=== PATIENT | female | born 1990 | race Two or more races ===

== ENCOUNTER 2019-07-03 06:10 | Emergency (ER) | payer MEDICAID ==
[~2019-07-03] VITALS: Ht 172.7 cm; Wt 84.0 kg
[2019-07-03 07:12] LABS: CLARITY,URINE CLEAR (Clear); COLOR,URINE YELLOW (Yellow); GLUCOSE, URINE NEGATIVE (Neg); KETONES,URINE NEGATIVE (Neg); LEUKOCYTE ESTERASE ,URINE NEGATIVE (Neg); NITRITES, URINE NEGATIVE (Neg); OCCULT BLOOD,URINE NEGATIVE (Neg); PH,URINE 7.5 (4.8-8.0); PROTEIN,URINE NEGATIVE (Neg); UROBILINOGEN,URINE 0.2 E.U/dL (0.2-1.0)
[2019-07-03 07:17] LABS: UA COLLECTION TYPE CLN CATCH MIDSTREAM; URINE HCG NEGATIVE (NEG)
[2019-07-03 07:38] LABS: EOSINOPHILS # (AUTO) 0.2 X10'3 (0-0.9); EOSINOPHILS % (AUTO) 4.1 % (0-6); HEMATOCRIT 33.8 % (35.0-45.0); HEMOGLOBIN 11.3 g/dl (12.0-16.0); LYMPHOCYTES # (AUTO) 1.8 X10'3 (1.1-4.8); LYMPHOCYTES % (AUTO) 36.2 % (21-51); MEAN CORPUSCULAR HEMOGLOBIN 28.9 PG (27.0-31.0); MEAN CORPUSCULAR HGB CONC 33.4 g/dL (33.0-36.5); MEAN CORPUSCULAR VOLUME 86.4 FL (78-98); MEAN PLATELET VOLUME 7.1 FL (7.4-10.4); MONOCYTES # (AUTO) 0.4 X10'3 (0-0.9); MONOCYTES % (AUTO) 8.8 % (2-12); NEUTROPHILS # (AUTO) 2.4 X10'3 (1.8-7.7); NEUTROPHILS % (AUTO) 49.9 % (42-75); PLATELET COUNT 238 X10'3 (140-440); RED BLOOD COUNT 3.92 X10'6 (4.20-5.60); RED CELL DISTRIBUTION WIDTH 14.6 % (11.5-14.5); WHITE BLOOD COUNT 4.8 X10'3 (4.5-11.0)
[2019-07-03 08:53] LABS: URINE AMPHETAMINE SCREEN NEGATIVE (Neg); URINE BARBITUATE SCREEN NEGATIVE (Neg); URINE BENZODIAZEPINES SCREEN NEGATIVE (Neg); URINE CANNABINOID SCREEN NEGATIVE (Neg); URINE COCAINE SCREEN NEGATIVE (Neg); URINE METHADONE SCREEN NEGATIVE (Neg); URINE OPIATE SCREEN NEGATIVE (Neg); URINE PHENCYCLIDINE SCREEN NEGATIVE (Neg)
[2019-07-03 09:05] LABS: ALANINE AMINOTRANSFERASE 24 U/L (12-78); ALBUMIN 3.5 G/DL (3.4-5.0); ALKALINE PHOSPHATASE 51 IU/L (46-116); ANION GAP 4 (8-16); ASPARTATE AMINO TRANSFERASE 21 U/L (10-37); BILIRUBIN,TOTAL 0.4 MG/DL (0.1-1.0); BLOOD UREA NITROGEN 13 MG/DL (7-18); BUN/CREATININE RATIO 14.8 (6.6-38.0); CALCIUM 8.2 MG/DL (8.5-10.1); CHLORIDE 104 MMOL/L (99-107); CREATININE 0.88 MG/DL (0.40-0.90); GLUCOSE 89 MG/DL (70-104); POTASSIUM 4.2 MMOL/L (3.5-5.1); SODIUM 138 MMOL/L (135-145); TOTAL CARBON DIOXIDE 29.7 MMOL/L (24-32); TOTAL PROTEIN 7.1 G/DL (6.4-8.2); eGFR 77 ML/MIN
[2019-07-03 09:14] LABS: ETHANOL < 0.010 GM/DL (0.0-0.010)
[2019-07-03 09:19] LABS: ACETAMINOPHEN < 2.0 UG/ML (10-30)
--- NOTE | 2019-07-03 09:29 | NUR ---
PACKET FAXED TO [facility]
[2019-07-03] MEDS ORDERED: BUPR300T53 PO (10:53)
[2019-07-03] MEDS ORDERED: TRAZ-251 PO (10:53)
[2019-07-03] MEDS ORDERED: MONT10TA21 PO (10:53)
[2019-07-03] MEDS ORDERED: FLUT16SP2 BOTHNARES (10:53)
[2019-07-03] MEDS ORDERED: CITA20TA19 PO (10:53)
--- NOTE | 2019-07-03 11:00 | NUR ---
Pt cooperative with assessment. Pt continues to endorse s.i. but says she is safe here and her plans are for outside the hospital. Pt would not tell me her plan because if she decides to do it, she doesn't want to be stopped. Pt resting quietly in bed without complaints.
--- NOTE | 2019-07-03 13:00 | NUR ---
Pt awaiting assessment by [facility]. Pt has no complaints and is lying with eyes closed.
--- NOTE | 2019-07-03 15:00 | NUR ---
Pt alternating between sitting up in bed reading a magazine or twisting her hair and sleeping. Staff explained the process of waiting for [facility] to evaluate her. Pt pleasant and cooperative.
--- NOTE | 2019-07-03 16:20 | NUR ---
pt is with [facility]
--- NOTE | 2019-07-03 17:00 | NUR ---
Pt completed assessment by [facility] and she was placed on 5150 for DTS. Pt compliant with assessment.
--- NOTE | 2019-07-03 18:46 | NUR ---
This patient is sitting at bedside eating her meal. She is oriented X4. This service writer advisor asked the patient if he could speak with her? The patient replied yes. When discussion began the patient told this service writer advisor she didn't want to talk now, only later. The patient makes direct eye contact. Her voice is soft with normal rate and rhythm. The patient is smiling. This service writer advisor will interview this patient after she finishes her dinner.
--- NOTE | 2019-07-03 19:09 | NUR ---
This aligner typewriter attempted to speak with this patient once again. The patient refused to talk to this aligner typewriter. Patient states "I'm not comfortable." This patient states she might speak with another RN. This aligner typewriter will ask a female RN if she would try speaking with this patient?
--- NOTE | 2019-07-03 19:45 | NUR ---
This mortgage loan underwriter asked patient if she wanted her Trazadone for sleep tonight. The patient replied "no." The patient was advised that if she changed her mind to let me know? The patient stated she did not wish wish to speak with this mortgage loan underwriter anymore, "only to another nurse."
--- NOTE | 2019-07-03 19:55 | NUR ---
This patient was non cooperative with second nurse interviewing her. This remote mortgage underwriter is unable to complete the [place] Suicide Severity Risk Assessment. Patient is in direct view from the nursing station. Frequent rounding will be done for patient and staff safety.
--- NOTE | 2019-07-03 20:04 | NUR ---
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
[2019-07-03] MEDS ORDERED: traZODone 50mg tablet PO SCH (21:00)
--- NOTE | 2019-07-03 21:24 | NUR ---
Patient is resting quietly, eyes closed, mid fowlers posetion in bed.
--- NOTE | 2019-07-03 21:38 | NUR ---
Patient is up to bathroom. She is ambulatory without problem.
--- NOTE | 2019-07-03 22:04 | NUR ---
This patient ambulated up to desk. Reached accross counter to grab marking pens. The nurse at desk told patient that she is not allowed to reach over counter, that if she needed things she would have to politely ask first. The patient stated "I'm not going to play that game!" The patient was then told by SHANNA Stafford that she would have to return to bed. The patient did comply. Patient is non compliant with some basic rules and medications at this time. Her nightime Trazadone was non-administered because of patient refusal.
--- NOTE | 2019-07-03 22:55 | NUR ---
Patient sleeping supine position, in view from nursing station.
--- NOTE | 2019-07-03 23:45 | NUR ---
Patient is sleeping on her right side, in view from nursing station.
--- NOTE | 2019-07-03 23:56 | NUR ---
Report to [facility] [place].
--- NOTE | 2019-07-04 01:39 | NUR ---
Patient is awake, low fowlers in bed. She has arms crossed. Patient looks angry. Will not speak with this specification writer.
--- NOTE | 2019-07-04 02:00 | NUR ---
LE: Pt present to ER registration @ shift change. Pt uncooperative and refused to identified her need with Registration personnel. Pt brought into Triage by this RN. When asked why she was here, pt stated "Suicide Prevention." When asked what she meant by that pt said, "I'm thinking about killing myself." When asked if she had a plan, pt stated, "I do, but I refuse to tell you. I don't want anyone to try to stop me if I go for it." When asked if she had a timeline, pt stated, "You don't have to worry about me. I won't be doing it while I'm here." Attempts to gather more details were unsuccessful with interaction becoming more defiant in nature AEB regardless of what was said or asked, pt responded in the opposite. With the Triage become more difficult to complete, I asked the pt, "What is it you want us to do for you" to which the pt stated "I want to be here for observation." Pt then stated she was done talking. Day shift RN Paula came in to take over the function. I exited out of the Triage, updated her on what had transpired and left.
--- NOTE | 2019-07-04 05:22 | NUR ---
Patient is sleeping quietly on her right side. In view from nursing station.
[2019-07-04 05:30] VITALS: BP 127/79
--- NOTE | 2019-07-04 06:28 | NUR ---
pt resting quietly in bed.
[2019-07-04] MEDS ORDERED: citalopram 20mg tablet PO SCH (08:00)
[2019-07-04] MEDS ORDERED: buPROPion SR 150mg tablet PO SCH (08:00)
[2019-07-04] MEDS ORDERED: montelukast 10mg tablet PO SCH (08:00)
[2019-07-04] MEDS ORDERED: fluticasone nasal spray 16GM bottle NS SCH (08:00)
--- NOTE | 2019-07-04 08:28 | NUR ---
pt sitting up in bed, calm, eating breakfast. Refuses to take scheduled Celexa and Wellbutrin. States she forgets to take them at home and she'd rather not start them in the hospital. Pt states "I'd rather just stay off".
--- NOTE | 2019-07-04 08:44 | NUR ---
[facility] at [address] Balbir BOLAÑOS. [employer] Associate to waste picker at 0915. Pt aware.
--- NOTE | 2019-07-04 09:21 | NUR ---
pt up to bathroom getting cleaned up before going to [facility].
--- NOTE | 2019-07-04 09:45 | NUR ---
pt left with tower truck driver to [facility].
== END 2019-07-04 09:50 ==
LOC: ER 06:12
DX: R45.851 Suicidal ideations (principal); R94.6 Abnormal results of thyroid function studies; Z60.2 Problems related to living alone
CPT/HCPCS: 36415; 80053; 80305; 80320; 80329; 81003; 81025; 84443; 85025; 99285